=== PATIENT | female | born 1955 | race Two or more races ===

== ENCOUNTER 2020-06-03 09:10 | Day surgery (SDC) | payer OTHER ==
[~2020-06-03 09:10] MED LIST: ATACAND32 MG PO; CLONAZEPAM0.5 MG PO; CRESTOR5 MG PO; LEVSIN0.125 MG PO; PROBIOTIC1 EAC2 PO; SYNTHROID75 MCG PO; ZYPREXA2.5 MG PO
[2020-06-03] MEDS ORDERED: PERCOCET 5-3251 EACH PO (14:24)
[2020-06-03] MEDS ORDERED: NEURONTIN600 M1 PO (14:25)
== END 2020-06-03 17:35 | disposition home or self-care (01) ==
LOC: CIR.AMB 09:10
PROVIDERS: ATTEND Surgery
DX: K80.10 Calculus of gallbladder with chronic cholecystitis without obstruction (principal); Z20.828 Contact with and (suspected) exposure to other viral communicable diseases